=== PATIENT | male | born 1950 | race Caucasian/White ===

== ENCOUNTER 2017-03-24 05:50 | Day surgery (SDC) | payer BC ==
[2017-03-23 09:52] VITALS: BMI 28.0
[2017-03-24] MEDS ORDERED: HYDROmorphone 1 MG/ML 1 ML SYRINGE IVP PRN (05:57)
[2017-03-24] MEDS ORDERED: SODIUM CHLORIDE 0.9% 1,000 ML IV SCH ×2 (05:57→07:30)
[2017-03-24] MEDS ORDERED: LACTATED RINGERS 1,000 ML IV SCH (05:57)
[2017-03-24] MEDS ORDERED: ONDANSETRON 4 MG/2 ML VIAL IVP ONE (05:57)
[2017-03-24] MEDS ORDERED: LIDOCAINE 1% 20 ML VIAL (10MG/ML) FOR IV START INTRADERMA PRN (05:57)
[2017-03-24] MEDS ORDERED: SODIUM CHLORIDE 0.9% 500 ML IV ONE (06:32)
[2017-03-24] MEDS ORDERED: PROPOFOL 10 MG/ML 20 ML VIAL IV ONE (07:13)
[2017-03-24] MEDS ORDERED: LACTATED RINGERS 1,000 ML IV ONE (07:34)
--- NOTE | 2017-03-24 07:56 | CE ---
DATE OF SERVICE: 03/24/2017 PROCEDURE: Electrical cardioversion. INDICATION: Persistent atrial fibrillation. Performed by Dr. Wellington Barbour. CLINICAL INFORMATION: Mr. Carlo Lebron is a 66-year-old gentleman with a new onset persistent atrial fibrillation with nonischemic cardiomyopathy who has been unable to be converted to sinus rhythm with pharmacological efforts. He was brought in for the procedure electively. He has been on Xarelto 20 mg daily, Lopressor 50 mg b.i.d. and amiodarone 200 mg b.i.d. was also started. PROCEDURE: Under the influence of ultra short-acting intravenous anesthetic agent with the attendance of the anesthesiologist, a single synchronized 200 joules shock was given with anterior and posterior patches. Patient converted to sinus rhythm, remained in sinus bradycardia, hemodynamically stable, neurologically intact. This was a successful electrical cardioversion. He will be discharged around 1 p.m. after he is up and ambulating without symptoms and has had a meal. He will be going home only on amiodarone 200 mg b.i.d. and Xarelto 20 mg daily but will not go on beta kanika and I will see him in the office on 04/01/2017 at 8:15 a.m. I discussed the details of the procedure and the discharge plan with the patient and his friend.
[2017-03-24 08:46] VITALS: RESP 16; TEMP 98
[2017-03-24 10:43] VITALS: BP 101/57; PULSE 58
== END 2017-03-24 12:57 | disposition home or self-care (01) ==
LOC: CATHCVL 05:50
PROVIDERS: ATTEND Internal Medicine Interventional Cardiology
DX: I48.1 Persistent atrial fibrillation (principal); I42.9 Cardiomyopathy, unspecified; Z87.891 Personal history of nicotine dependence; Z79.01 Long term (current) use of anticoagulants; Z82.49 Family history of ischemic heart disease and other diseases of the circulatory system; Z79.899 Other long term (current) drug therapy; Z88.0 Allergy status to penicillin
CPT/HCPCS: 93005; 92960; J2704

== ENCOUNTER → 2025-05-14 | Outpatient (CLI) | payer MEDICARE | END | disposition home or self-care (01) | LOC: RADMRIMAIN 06:45 | PROVIDERS: ATTEND Internal Medicine | DX: Z53.9 Procedure and treatment not carried out, unspecified reason (principal) ==